=== PATIENT | female | born 1955 | race Caucasian/White ===

== ENCOUNTER 2022-12-06 06:36 | Emergency (ER) | payer BC, OTHER ==
[~2022-12-06] VITALS: Ht 165.1 cm; Wt 74.8 kg
[~2022-12-06 06:36] MED LIST: ELMIRON PO
[2022-12-06 06:40] VITALS: BP_SYST 147; PULSE 90; RESP 18; TEMP 100; O2SAT 96
[2022-12-06 07:23] LABS: BASOPHILS % (AUTO) 0.2 % (0.0-2.0); EOSINOPHILS # (AUTO) 0.1 K/uL (0.0-0.4); EOSINOPHILS % (AUTO) 0.9 % (0.0-4.0); HEMATOCRIT 40.8 % (36-48); HEMOGLOBIN 13.6 g/dL (12.0-16.0); LYMPHOCYTES # (AUTO) 0.9 K/uL (1.0-5.5); LYMPHOCYTES % (AUTO) 11.5 % (20.5-51.5); MEAN CORPUSCULAR HEMOGLOBIN 29 pg (27-31); MEAN CORPUSCULAR HGB CONC 33 % (32-36); MEAN CORPUSCULAR VOLUME 87 fL (79.0-98.0); MONOCYTES # (AUTO) 0.5 K/uL (0.0-1.0); MONOCYTES % (AUTO) 6.6 % (1.7-9.3); NEUTROPHILS # (AUTO) 6.5 K/uL (1.8-7.7); NEUTROPHILS % (AUTO) 80.8 % (40.0-70.0); PLATELET COUNT (AUTO) 173 K/uL (130-430); RED BLOOD CELL COUNT(AUTO) 4.68 MIL/uL (4.2-6.2); RED CELL DISTRIBUTION WIDTH 13.5 % (9.0-15.0); WHITE BLOOD COUNT (AUTO) 8.1 K/uL (4.8-10.8)
[2022-12-06 07:31] LABS: BILIRUBIN,URINE NEGATIVE (NEGATIVE); CLARITY/URINE CLEAR (CLEAR); COLOR,URINE YELLOW (YELLOW); GLUCOSE,URINE NEGATIVE (NEGATIVE); KETONES,URINE 1+ (NEGATIVE); LEUKOCYTE ESTERASE ,URINE 1+ (NEGATIVE); NITRITE, URINE NEGATIVE (NEGATIVE); PH,URINE 6.5 (5.0-8.0); PROTEIN URINE TRACE (NEGATIVE); UROBILINOGEN,URINE 0.2 (0.2-1.0)
[2022-12-06 07:37] LABS: BLOOD, URINE TRACE (NEGATIVE)
[2022-12-06 07:41] LABS: CALCIUM 8.8 mg/dL (8.4-11.0); CREATININE 0.8 mg/dL (0.55-1.30)
[2022-12-06 07:45] LABS: ALBUMIN 3.9 g/dL (3.4-4.8); TOTAL BILIRUBIN 1.3 mg/dL (0.0-1.0)
[2022-12-06 08:08] LABS: RBC,URINE 0-3 /HPF (0-3)
[2022-12-06 08:09] LABS: BACTERIA,URINE RARE /HPF (None Seen); MUCUS,URINE 1+ /LPF (None Seen)
[2022-12-06] MEDS ORDERED: metroNIDAZOLE 500 mg/NS 100 ML IV ONE (10:30)
[2022-12-06] MEDS ORDERED: METR-154 PO (10:37)
[2022-12-06] MEDS ORDERED: D5/0.45 NS 1,000 ML IV SCH (10:45)
[2022-12-06 13:43] VITALS: BP_SYST 139; PULSE 79; RESP 16; TEMP 97; O2SAT 97
[2022-12-09] MEDS ORDERED: LIP10 PO (11:19)
[2022-12-11] MEDS ORDERED: AUG875 PO (12:31)
[2022-12-11] MEDS ORDERED: LACT1TAB26 PO (12:32)
== END 2022-12-06 13:44 | disposition home or self-care (01) ==
LOC: SED 06:36 → SMU 10:34 → UNDOADMIN 10:34 → SED 13:44
DX: K57.32 Diverticulitis of large intestine without perforation or abscess without bleeding (principal); K59.00 Constipation, unspecified; R10.9 Unspecified abdominal pain; E78.5 Hyperlipidemia, unspecified; Z88.1 Allergy status to other antibiotic agents; Z79.899 Other long term (current) drug therapy
CPT/HCPCS: 99285; 74176; 96365; 80053; 81000; 85025; 87040; 87086; 36415; 76376; 83605; J3490